=== PATIENT | male | born 1940 | race African-American/Black ===

== ENCOUNTER 2018-01-03 15:50 | Emergency (ER) | payer OTHER, BC ==
[~2018-01-03] VITALS: Ht 172.7 cm; Wt 73.0 kg
[2018-01-03 15:59] VITALS: BP 133/84
== END 2018-01-03 17:46 | disposition left against medical advice (07) ==
LOC: ER 15:50
DX: Z53.21 Procedure and treatment not carried out due to patient leaving prior to being seen by health care provider (principal)

== ENCOUNTER 2023-06-14 12:50 | Emergency (ER) | payer BC, OTHER ==
[~2023-06-14] VITALS: Ht 175.3 cm; Wt 85.0 kg
[2023-06-14 12:59] VITALS: BP 138/77; PULSE 85; RESP 18; TEMP 98.3; O2SAT 97
[2023-06-14] MEDS ORDERED: LEVETIRACETAM 500MG PREMIX 100 ML IV ONE (13:15)
== END 2023-06-14 13:49 | disposition left against medical advice (07) ==
LOC: ER 12:50
DX: G40.909 Epilepsy, unspecified, not intractable, without status epilepticus (principal); Z53.21 Procedure and treatment not carried out due to patient leaving prior to being seen by health care provider
CPT/HCPCS: 99283

== ENCOUNTER 2024-04-03 06:16 | Emergency (ER) | payer OTHER ==
[~2024-04-03] VITALS: Ht 175.3 cm; Wt 62.1 kg
[2024-04-03 06:24] VITALS: BP 178/99; RESP 16; TEMP 98.3; O2SAT 99
[2024-04-03 06:29] VITALS: PULSE 84; O2SAT 97
[2024-04-03] MEDS: TETANUS, DIPHTHERIA, PERTUSSIS VAC/PF 0.5ML (>10YR OLD) IM ONE (09:27)
[2024-04-03] MEDS: BACITRACIN 14GM TUBE TOP ONE (09:42)
== END 2024-04-03 09:44 | disposition left against medical advice (07) ==
LOC: ER 06:16
DX: R21 Rash and other nonspecific skin eruption (principal); F19.90 Other psychoactive substance use, unspecified, uncomplicated
CPT/HCPCS: 90471; 90715; 99283